=== PATIENT | female | born 1995 | race American Indian/Alaskan Native ===

== ENCOUNTER 2017-01-22 11:07 | Day surgery (SDC) | payer MEDICAID ==
[2017-01-22 11:42] LABS: Basophils % (Auto) 0.5 % (0.0-1.8); Hematocrit 36.7 % (30.3-42.9); Mean Corpuscular HGB Conc 33 % (30-34); Mean Corpuscular Hemoglobin 31 pg (28-32); Mean Corpuscular Volume 93 fl (79-97); Platelet Count 201 K/mm3 (140-440); Red Blood Count 3.93 M/mm3 (3.65-5.03); Red Cell Distribution Width 14.6 % (13.2-15.2); White Blood Count 7.3 K/mm3 (4.5-11.0)
--- NOTE | 2017-01-22 13:36 | Emergency Department Report ---
ED Female HPI - General Chief complaint: Vaginal Bleeding Stated complaint: S/P DELIVERY/EXCESSIVE BLEEDING Time Seen by Provider: 01/22/17 13:25 Source: patient Mode of arrival: Ambulatory Limitations: No Limitations - History of Present Illness Initial comments: Patient is status post vaginal delivery last Thursday at [place]. Apparently she had an episiotomy with "3 sutures". She complains of some lower abdominal cramping. She states he's been passing clots. She denies fever or chills. She states she is 3 para 3. There were no other of her last . She has had 1 previous . MD Complaint: vaginal bleeding -: Gradual Location: other (vaginal bleeding and suprapubic pain) Radiation: non-radiating Severity: moderate Quality: cramping Consistency: intermittent Improves with: none Worsens with: none Are you Now?: No - Related Data Allergies Allergy/AdvReac Type Severity Reaction Status Date / Time No Known Allergies Allergy Unverified 01/22/17 11:21 ED Review of Systems ROS: Stated complaint: S/P DELIVERY/EXCESSIVE BLEEDING Other details as noted in HPI Constitutional: denies: chills, fever Eyes: denies: eye pain, eye discharge, vision change ENT: denies: ear pain, throat pain Respiratory: denies: cough, shortness of breath, wheezing Cardiovascular: denies: chest pain, palpitations Endocrine: no symptoms reported Gastrointestinal: abdominal pain. denies: nausea, diarrhea Genitourinary: as per HPI, other ( bleeding). denies: urgency, dysuria, discharge Musculoskeletal: denies: back pain, joint swelling, arthralgia Skin: denies: rash, lesions Neurological: denies: headache, weakness, paresthesias Psychiatric: denies: anxiety, depression Hematological/Lymphatic: denies: easy bleeding, easy bruising ED Past Medical Hx - Past Medical History Previous Medical History?: No - Surgical History Additional Surgical History: C SECTION 6 YRS AGO - Social History Smoking Status: Never Smoker Substance Use Type: None ED Physical Exam - General Limitations: No Limitations General appearance: alert, in no apparent distress - Head Head exam: Present: atraumatic, normocephalic - Eye Eye exam: Present: normal appearance. Absent: scleral icterus - ENT ENT exam: Present: mucous membranes moist - Neck Neck exam: Present: normal inspection - Respiratory Respiratory exam: Present: normal lung sounds bilaterally. Absent: respiratory distress - Cardiovascular Cardiovascular Exam: Present: regular rate, normal rhythm. Absent: systolic murmur, diastolic murmur, rubs, gallop - GI/Abdominal GI/Abdominal exam: Present: soft, tenderness, normal bowel sounds, mass ( patient has what appears to be an enlarged uterus which is mostly palpable in the right suprapubic area). Absent: distended, guarding, rebound, rigid, bruit , pulsatile mass, hernia - External exam: Present: other (there were clots at the introitus but no active bleeding) - Extremities Exam Extremities exam: Present: normal inspection - Back Exam Back exam: Present: normal inspection - Neurological Exam Neurological exam: Present: alert, oriented X3 - Psychiatric Psychiatric exam: Present: normal affect, normal mood - Skin Skin exam: Present: warm, dry, intact, normal color. Absent: rash ED Course Vital Signs 01/22/17 01/22/17 01/22/17 11:21 12:02 13:00 Temperature 98.6 F Pulse Rate 112 H 65 78 Respiratory 20 18 Rate Blood Pressure 108/92 108/65 109/60 O2 Sat by Pulse 96 Oximetry 01/22/17 01/22/17 01/22/17 14:45 14:48 15:00 Temperature Pulse Rate 81 81 65 Respiratory 18 18 18 Rate Blood Pressure 103/57 103/57 94/52 O2 Sat by Pulse Oximetry 01/22/17 01/22/17 01/22/17 16:00 16:30 17:00 Temperature Pulse Rate 99 H 75 69 Respiratory 18 18 18 Rate Blood Pressure 88/42 107/50 101/75 O2 Sat by Pulse Oximetry 01/22/17 01/22/17 18:02 18:49 Temperature 98.5 F Pulse Rate 72 92 H Respiratory 18 18 Rate Blood Pressure 107/57 110/61 O2 Sat by Pulse 100 Oximetry - Reevaluation(s) Reevaluation #1: I spoke to Dr. Tamir Feldman. He stated that he would see the patient and determine an appropriate disposition. She was found to have intrauterine complex collection and retained products could not be excluded by the radiologist. She has been stable awaiting his consultation. 01/22/17 16:58 ED Medical Decision Making - Lab Data Result diagrams: 01/22/17 11:27 Laboratory Results - last 24 hr 01/22/17 01/22/17 01/22/17 11:27 11:27 11:30 WBC 7.3 RBC 3.93 Hgb 12.0 Hct 36.7 MCV 93 MCH 31 MCHC 33 RDW 14.6 Plt Count 201 Lymph % (Auto) 53.4 H [place] % (Auto) 4.6 Eos % (Auto) 3.0 Baso % (Auto) 0.5 Lymph # 3.9 [place] # 0.3 Eos # 0.2 Baso # 0.0 Seg Neutrophils % 38.5 L Seg Neutrophils # 2.8 HCG, Quant 56.86 H Blood Type O POSITIVE Antibody Screen Negative Critical care attestation.: If time is entered above; I have spent that time in minutes in the direct care of this critically ill patient, excluding procedure time. ED Disposition Clinical Impression: Retained products of conception bleeding Qualifiers: hemorrhage type: unspecified Qualified Code(s): O72.1 - Other immediate hemorrhage Disposition: DC-09 OP ADMIT IP TO THIS HOSP Is pt being admited?: Yes Does the pt Need Aspirin: No Condition: Stable Time of Disposition: 19:46
[2017-01-22] MEDS ORDERED: MORPHINE IV ONE (13:42)
[2017-01-22] MEDS ORDERED: NACL 0.9% 1000 ML 1,000 ML IV ONE (13:42)
[2017-01-22] MEDS ORDERED: ZOFRAN IV ONE (13:42)
--- NOTE | 2017-01-22 14:40 | Ultrasound Report ---
OB ultrasound: The patient is approximately 6 days vaginal delivery presenting with vaginal hemorrhage. Transabdominal imaging demonstrates an enlarged uterus measuring 8.1 x 9.5 x 17.6 cm. The endometrium is diffusely inhomogeneous having a width of approximately 19 mm in the mid uterus. In the cervix there is an inhomogeneous and more focal collection measuring approximately 5.2 cm. The right ovary measures 3.5 cm and the left 3.2 cm in maximum dimension. Impressions: Retained uterine POC versus clot.
--- NOTE | 2017-01-22 18:15 | Short Stay Summary ---
Short Stay Documentation Date of service: 01/22/17 Narrative H&P: Patient is a 21yo BF who is status post vaginal delivery last Thursday at [place]. Apparently she had an episiotomy with "3 sutures". She complains of some lower abdominal cramping and passing clots. She denies fever or chills. There were no complications with her delivery although previous was a . - History Principal diagnosis: Retained products of conception H&P: obtained from office Past Medical History: No medical history Past Surgical History: Social history: no significant social history, single - Allergies and Medications Current Medications: Allergies No Known Allergies Allergy (Unverified 01/22/17 11:21) Active Medications Sodium Chloride (Nacl 0.9% 1000 Ml) 1,000 mls @ 125 mls/hr IV ONCE ONE Stop: 01/22/17 21:41 Last Admin: 01/22/17 14:41 Dose: 125 mls/hr Cefazolin Sodium (Ancef/Sterile Water 2 Gm/20 Ml) 2 gm in 20 mls @ 80 mls/hr IV PREOP NR PRN Reason: Protocol Lactated Ringer's (Lactated Ringers) 1,000 mls @ 125 mls/hr IV DIRECT MARTIN - Physical exam General appearance: no acute distress Integumentary: no rash HEENT: Atraumatic Lungs: Clear to auscultation Breasts: deferred Heart: Regular rate Gastrointestinal: normal Female Genitourinary: deferred Rectal Exam: deferred Extremities: no ischemia Neurological: Normal speech - Brief post op/procedure progress note Date of procedure: 01/22/17 Pre-op diagnosis: Retained products of conception Post-op diagnosis: same Procedure: 1. Dilation and Curettage 2. Episiotomy repair Anesthesia: MAC Findings: A 16-18 weeks size uterus with large amounts of products of conception. A broken down episiotomy repair. Surgeon: ACE ZARAGOZA Estimated blood loss: 50-100ml Pathology: list (POC) Specimen disposition: to lab Condition: stable - Hospital course Hospital course: Unremarkable. - Disposition Condition at discharge: Good Disposition: DC- TO HOME OR SELFCARE - Discharge Diagnoses (1) Retained products of conception Status: Resolved Short Stay Discharge Plan Activity: no restrictions Diet: regular Follow up with: IRVIN BAKER MD [Primary Care Provider] - 3-5 Days ACE ZARAGOZA MD [Staff Physician] - 14 Days Prescriptions: Doxycycline [Vibramycin CAP] 100 mg PO Q12HR #14 capsule Ibuprofen [Motrin] 800 mg PO Q8HR PRN #30 tablet PRN Reason: Pain, Moderate (4-6) Methylergonovine [Methergine] 0.2 mg PO Q8HR #6 tablet
[2017-01-22] MEDS ORDERED: DILAUDID ONE (18:46)
[2017-01-22] MEDS ORDERED: DIPRIVAN 10 MG/ML IV ONE (18:46)
[2017-01-22] MEDS ORDERED: DECADRON ONE (18:49)
[2017-01-22] MEDS ORDERED: XYLOCAINE MPF 2% ONE (18:49)
[2017-01-22] MEDS ORDERED: ZOFRAN ONE (18:49)
--- NOTE | 2017-01-22 18:56 | Anesthesia Day of Surgery ---
Anesthesia Day of Surgery - Day of Surgery Patient Examined: Yes Patient H&P Reviewed: Yes Patient is NPO: Yes
--- NOTE | 2017-01-22 18:56 | Anesthesia Consultation ---
Anesthesia Consult and Med Hx Date of service: 01/22/17 - Airway Anesthetic Teeth Evaluation: Good ROM Head & Neck: Adequate Mental/Hyoid Distance: Adequate Mallampati Class: Class II Intubation Access Assessment: Probably Good - Pulmonary Exam CTA: Yes - Cardiac Exam Cardiac Exam: RRR - Pre-Operative Health Status ASA Pre-Surgery Classification: ASA1 Proposed Anesthetic Plan: General - Pulmonary Hx Smoking: No Hx Asthma: No - Cardiovascular System Hx Hypertension: No - Central Nervous System Hx Neuromuscular Disorder: No - Endocrine Hx Renal Disease: No Hx Non-Insulin Dependent Diabetes: No
[2017-01-22] MEDS ORDERED: DILAUDID IV PRN (18:59)
[2017-01-22] MEDS ORDERED: PERCOCET 5/325 PO PRN (18:59)
[2017-01-22] MEDS ORDERED: LACTATED RINGERS 1,000 ML IV SCH (19:00)
[2017-01-22] MEDS ORDERED: ANCEF/STERILE WATER 2 GM/20 ML 2 GM/20 ML SYRINGE IV NR (19:00)
[2017-01-22] MEDS ORDERED: ANCEF ONE ×2 (19:35)
[2017-01-22] MEDS ORDERED: BENADRYL IV PRN (20:15)
--- NOTE | 2017-01-22 20:15 | Operative Report ---
Operative Report Operative Report: PREOPERATIVE DIAGNOSIS: Retained products of conception POSTOPERATIVE DIAGNOSIS: Same OPERATIVE PROCEDURE: Dilatation and curettage. SURGEON: Tamir Feldman MD ANESTHESIA: Gen. mac ANESTHESIOLOGIST: Dr. Bryson Reich ESTIMATED BLOOD LOSS: 50 mL FINDINGS: A 16-18 week size uterus with large amounts of products of conception COMPLICATIONS: None COUNTS: Correct x3. PROCEDURE: After the patient was correctly identified, and after general anesthesia was administered, the patient was prepped and draped in the usual sterile fashion and placed in dorsal lithotomy position. First, the bladder was emptied using a straight catheter. Next, a speculum was placed in the vaginal vault and the anterior lip of the cervix was grasped using a single- tooth tenaculum. The uterus was sounded to 16 cm. The cervical os was sequentially dilated, and an 14 mm vaccurette was used to suction blood and products of conception from the uterine cavity. After all the products of conception were removed, the procedure was considered complete. A break down of the episiotomy site was repaired with 3 0 vicryl suture. All instruments were removed from the vagina. The patient tolerated the procedure well and was transferred to the recovery room in stable condition.
[2017-01-22 22:39] VITALS: BP 114/58
--- NOTE | 2017-01-22 23:46 | Post Anesthesia Evaluation ---
- Post Anesthesia Evaluation Patient Participated: Yes Airway Patent: Yes Stable Respiratory Function: Yes Nausea/Vomiting: No Temp > 96.8F: Yes Pain Manageable: Yes Adequeate Hydration: Yes Anesthesia Complications: No Block Receding Appropriately: Not Applicable Patient on Ventilator: No
== END 2017-01-22 22:20 | disposition home or self-care (01) ==
LOC: ED 11:07 → OR 18:59
PROVIDERS: ATTEND Obstetrics & Gynecology
DX: N93.9 Abnormal uterine and vaginal bleeding, unspecified (principal); R10.2 Pelvic and perineal pain; F32.9 Major depressive disorder, single episode, unspecified; F41.9 Anxiety disorder, unspecified; Z79.899 Other long term (current) drug therapy; Z79.2 Long term (current) use of antibiotics; Z98.890 Other specified postprocedural states
CPT/HCPCS: 36415; 58120; 76801; 84702; 85025; 86850; 86900; 86901; 88305; 99285; J0690; J1100; J1170; J2270; J2405; J2704; J7030